=== PATIENT | male | born 1945 | race Caucasian/White ===

== ENCOUNTER 2019-01-01 19:57 | Inpatient (IN) | payer MEDICARE ==
[~2019-01-01] VITALS: Ht 177.8 cm; Wt 99.6 kg
[2019-01-01] MEDS ORDERED: COREG 3.1253.125 MG PO (20:02)
[2019-01-01] MEDS ORDERED: LASIX80 MG PO (20:03)
[2019-01-01] MEDS ORDERED: INSULIN (20:03)
[2019-01-01] MEDS ORDERED: NEURONTIN 300300 MG PO (20:03)
[2019-01-01] MEDS ORDERED: LISINOPRIL2.5 MG PO (20:03)
[2019-01-01] MEDS ORDERED: FERROUS SULFAT325 MG PO (20:03)
[2019-01-01] MEDS ORDERED: ZOLOFT100 MG PO (20:04)
[2019-01-01] MEDS ORDERED: SENNA LAXATIVE8.6 MG PO (20:04)
[2019-01-01] MEDS ORDERED: CLARITIN 10 MG10 MG PO (20:04)
[2019-01-01] MEDS ORDERED: COUMADIN2 MG PO (20:05)
[2019-01-01] MEDS ORDERED: FLOMAX0.4 MG PO (20:05)
--- NOTE | 2019-01-01 20:16 | NUR ---
PT TO RADIOLOGY.
[2019-01-01 20:18] LABS: BASOPHILS 0 % (0-2); EOSINOPHILS 0.3 % (0-7); HEMATOCRIT 28.3 % (42.0-54.0); HEMOGLOBIN 8.9 g/dL (13.5-17.5); IMMATURE GRANULOCYTES 0.4 % (0-5); LYMPHOCYTES 3.4 % (15-50); MCH 29.5 pg (26.0-34.0); MCHC 31.4 g/dL (31.0-37.0); MCV 93.7 fL (80.0-100.0); MEAN PLATELET VOLUME 9.7 fL (7.4-10.4); MONOCYTES 2.6 % (2-11); NEUTROPHILS 93.3 % (40-80); RBC 3.02 10x6/uL (4.20-6.10); RDW 15.2 % (11.5-14.5); WBC 10.5 10x3/uL (4.8-10.8)
[2019-01-01 20:27] LABS: APTT 46.3 SECONDS (22.8-39.4); INR 3.03 (0.85-1.17); PROTIME 30.6 SECONDS (11.6-15.0)
[2019-01-01 20:28] LABS: D-DIMER-QUANTITATIVE 2.01 ug/mLFEU (0.20-0.54)
--- NOTE | 2019-01-01 20:32 | NUR ---
PT RETURNED FROM RADIOLOGY.
[2019-01-01 20:35] VITALS: BP 80/50
[2019-01-01 20:44] LABS: ALBUMIN 1.9 g/dL (3.4-5.0); ALKALINE PHOSPHATASE 79 U/L (46-116); ALT (SGPT) 10 U/L (10-68); BILIRUBIN - TOTAL 0.29 mg/dL (0.2-1.3); CALCIUM 7.2 mg/dL (8.5-10.1); CARBON DIOXIDE 28.8 mmol/L (21.0-32.0); CHLORIDE - SERUM 98 mmol/L (98-107); CKMB 1.4 U/L (0.0-3.6); CREATINE KINASE 51 UL (21-232); CREATININE - SERUM 7.7 mg/dL (0.6-1.3); PROTEIN - SERUM 5.9 g/dL (6.4-8.2); SODIUM 140 mmol/L (136-145); TROPONIN-I 0.049 ng/mL (0.000-0.060); UREA NITROGEN 119 mg/dL (7-18); eGFR NON AFRICAN AMERICAN 7 mL/min (90-120)
[2019-01-01 20:48] LABS: CALC OSMOLALITY 317 mosm/kg (275-300); GLUCOSE 109 mg/dL (74-106)
[2019-01-01 20:49] LABS: POTASSIUM - SERUM 2.3 mmol/L (3.5-5.1)
[2019-01-01 20:54] LABS: PLATELET COUNT 159 10x3/uL (130-400)
[2019-01-01 21:00] VITALS: BP 80/51
[2019-01-01 21:23] LABS: APPEARANCE HAZY (CLEAR); BILIRUBIN NEGATIVE (NEGATIVE); COLOR YELLOW (YELLOW); GLUCOSE NEGATIVE (NEGATIVE); KETONE NEGATIVE (NEGATIVE); NITRITE NEGATIVE (NEGATIVE); PROTEIN TRACE mg/dL (NEGATIVE); SPECIFIC GRAVITY 1.015 (1.005-1.020); UROBILINOGEN NORMAL (NORMAL)
[2019-01-01 21:24] LABS: BACTERIA MODERATE /hpf (NONE SEEN); RED CELLS - URINE >50 /hpf (0-5); WHITE CELLS - URINE 0-5 /hpf (0-5)
[2019-01-01 22:00] VITALS: BP 95/57
--- NOTE | 2019-01-01 22:07 | NUR ---
[facility] WITH [facility], INFORMED THEM THAT PT REFUSES TRANSFER THERE AND WANTS TO STAY HERE INSTEAD. FAXED SIGNED PATIENT DECLINE TO CONSENT TO [facility] FORM TO [facility].
--- NOTE | 2019-01-01 22:23 | NUR ---
ULTRASOUND AT PT'S BEDSIDE TO DO STUDY.
[2019-01-01 23:00] VITALS: BP 88/53
--- NOTE | 2019-01-01 23:14 | NUR ---
PT GIVEN BLANKETS. DENIES ANY FURTHER NEEDS AT THIS TIME. FAMILY AT BEDSIDE. WILL CONTINUE TO MONITOR.
--- NOTE | 2019-01-02 00:36 | NUR ---
RECIEVED TO ROOM 2138 FROM ER VIA STRETCHER. PT A&O. VITALS STABLE. IV TO RIGHT ARM WITH NS 40 KCL INFUSING AT 250. IV TO LEFT ARM SL. BOTH IV SITES CLEAN AND DRY. NO SWELLING OR REDDNESS NOTED. HISTORY AND MED REC OBTAINED. PT DENIES PAIN OR NEEDS, BED LOW, CL IN REACH.
[2019-01-02 05:13] VITALS: BP 147/98; BMI 27.0
[2019-01-02 05:43] VITALS: BP 95/61
[2019-01-02 07:07] LABS: BASOPHILS 0.1 % (0-2); EOSINOPHILS 0.2 % (0-7); HEMATOCRIT 27.4 % (42.0-54.0); HEMOGLOBIN 8.7 g/dL (13.5-17.5); IMMATURE GRANULOCYTES 0.3 % (0-5); LYMPHOCYTES 11.1 % (15-50); MCH 29.9 pg (26.0-34.0); MCHC 31.8 g/dL (31.0-37.0); MCV 94.2 fL (80.0-100.0); MEAN PLATELET VOLUME 9.5 fL (7.4-10.4); NEUTROPHILS 82.3 % (40-80); PLATELET COUNT 141 10x3/uL (130-400); RBC 2.91 10x6/uL (4.20-6.10); RDW 15.5 % (11.5-14.5)
[2019-01-02 07:14] LABS: WBC 15.3 10x3/uL (4.8-10.8)
[2019-01-02 07:22] LABS: ALBUMIN 1.8 g/dL (3.4-5.0); BILIRUBIN - TOTAL 0.28 mg/dL (0.2-1.3); CALCIUM 7.2 mg/dL (8.5-10.1); CARBON DIOXIDE 28.7 mmol/L (21.0-32.0); CREATININE - SERUM 7.2 mg/dL (0.6-1.3); MAGNESIUM - SERUM 1.2 mg/dL (1.8-2.4); PROTEIN - SERUM 5.6 g/dL (6.4-8.2)
[2019-01-02 07:23] LABS: ANION GAP 14.4 mmol/L (8-16); POTASSIUM - SERUM 3.1 mmol/L (3.5-5.1)
--- NOTE | 2019-01-02 09:00 | NUR ---
PT RESTING IN BED, SHIFT ASSESSMENT PERFORMED. DENIES NEEDS AT THIS TIME, DENIES PAIN AT THIS TIME WILL CONT TO FOLLOW PLAN OF CARE
--- NOTE | 2019-01-02 10:24 | NUR ---
RADIOLOGY HERE TO TAKE PT FOR VQ SCAN.
--- NOTE | 2019-01-02 10:32 | NUR ---
RADIOLOGY DID NOT TAKE PT. HE IS HAVING DIARRHEA AND REQUEST THEM TO COME BACK LATER
--- NOTE | 2019-01-02 12:45 | NUR ---
RADIOLOGY HERE AGAIN TO TAKE PT FOR VQ SCAN
[2019-01-02 13:41] VITALS: BMI 27.7
--- NOTE | 2019-01-02 13:48 | NUR ---
PT RETURNED BACK FROM VQ SCAN.
[2019-01-02 15:11] VITALS: Ht 177.8 cm; Wt 99.6 kg
[2019-01-02 15:23] LABS: % SATURATION 19 % (15-55); IRON 24 ug/dl (35-150); TOTAL IRON BIND CAPACITY 124 ug/dl (260-445); UNSAT IRON BIND CAPACITY 100 ug/dl (150-375)
--- NOTE | 2019-01-02 16:06 | NUR ---
Pt admitted last night from home. Upon entry into the room it is evident that he has wounds due to the odor. Left lateral ankle has a 4cm x 4cm x stringy escar. This pressure injury is unstageable. Escar is in the center of wound bed with pale wet pink tissue around it. Right heel has an unstageable pressure injury measuring 7cm x 7cm x stringy moist escar. A culture was obtained from under the escar. Both wounds are malodorous. Cleansed well and applied a wet to dry dressing using saline and moistened 4x4s. Recommend using Dakins solution for dressing changes. Also: -bridge heels off the bed and pillows. Assist with positioning legs (left foot tends to lay laterally - directly on the left ankle - hence the pressure injury) -turn/reposition q 2 hours -monitor and protect bony prominences Wound care will monitor.
[2019-01-02 18:17] VITALS: BP 149/56
--- NOTE | 2019-01-02 20:48 | NUR ---
RESUMING PT CARE. PT IS ALERT LAYING IN BED. NO C/O VOICED. NO S/S OF DISTRESS NOTED. RESPIRATIONS EVEN AND UNLABORED. BED IN LOW POSITION WITH CALL LIGHT IN REACH. WILL CONTINUE TO MONITOR PT AND FOLLOW PLAN OF CARE.
[2019-01-02 21:07] VITALS: BP 121/77
--- NOTE | 2019-01-03 03:28 | NUR ---
PT LAYING IN BED WITH EYES CLOSED RESTING COMFORTABLY. NO S/S OF DISTRESS NOTED. RESPIRATIONS ARE EVEN AND UNLABORED. BED IN LOW POSITION WITH CALL LIGHT IN REACH. SIDE RAILS UP X 2. WILL CONTINUE TO MONITOR PT AND FOLLOW PLAN OF CARE.
--- NOTE | 2019-01-03 04:15 | NUR ---
I have reviewed this patient and I concur with the Shift Assessment completed by the Licensed Practical Nurse today this shift.
[2019-01-03 05:02] VITALS: BP 117/69
[2019-01-03 06:31] LABS: BASOPHILS 0.1 % (0-2); EOSINOPHILS 1.7 % (0-7); HEMATOCRIT 27.6 % (42.0-54.0); HEMOGLOBIN 8.3 g/dL (13.5-17.5); IMMATURE GRANULOCYTES 0.4 % (0-5); LYMPHOCYTES 13.3 % (15-50); MCHC 30.1 g/dL (31.0-37.0); MEAN PLATELET VOLUME 10.4 fL (7.4-10.4); MONOCYTES 10.4 % (2-11); NEUTROPHILS 74.1 % (40-80); PLATELET COUNT 164 10x3/uL (130-400); RBC 2.86 10x6/uL (4.20-6.10); RDW 15.8 % (11.5-14.5)
[2019-01-03 06:36] LABS: MCV 96.5 fL (80.0-100.0)
[2019-01-03 06:58] LABS: ALBUMIN 1.9 g/dL (3.4-5.0); ANION GAP 16.8 mmol/L (8-16); BILIRUBIN - TOTAL 0.3 mg/dL (0.2-1.3); CALCIUM 7.5 mg/dL (8.5-10.1); CARBON DIOXIDE 26.4 mmol/L (21.0-32.0); CREATININE - SERUM 6.8 mg/dL (0.6-1.3); MAGNESIUM - SERUM 1.8 mg/dL (1.8-2.4); PHOSPHOROUS 5.4 mg/dL (2.5-4.9); POTASSIUM - SERUM 4.2 mmol/L (3.5-5.1)
--- NOTE | 2019-01-03 08:58 | NUR ---
NO DISTRESS NOTED. WILL CONTINUE TO MONITOR.
[2019-01-03 09:14] LABS: FOLATE (FOLIC ACID) - SERUM 9.2 ng/mL (>3.0)
--- NOTE | 2019-01-03 09:34 | NUR ---
AWAKE SITTING UP IN BED READING THE PAPER AND HAVING BREAKFAST. NO DISTRESS NOTED.
[2019-01-03 09:39] VITALS: BP 130/81
--- NOTE | 2019-01-03 10:34 | NUR ---
PT HAS HAD ANOTHER SMALL AMT OF LIQUID BLACK STOOL. Vidal BARGER RENAL CHILD CARE COOK HERE AND WAS INFORMED. DRESSING ON FEET WERE CHANGED EARLY THIS AM. FOUL ODOR NOTED FROM FEET. P.T. IN ROOM TO AMB PT.
[2019-01-03 11:45] VITALS: BP 147/76
--- NOTE | 2019-01-03 12:15 | NUR ---
INFORMED DR. FERRER OF [facility]. DR. FERRER WANTS TO WAIT ON GI CONSULT
--- NOTE | 2019-01-03 15:50 | MORECARE ---
CASE MANAGEMENT DISCHARGE SUMMARY PATIENT: STEPHIE CHURCH UNIT: [id number] ADM DATE: 01/01/19 AGE: 73 : 46 SEX: M ROOM/BED: D.5088 AUTHOR: AHMET,DOC PHYSICIAN: REFERRING PHYSICIAN: SOLEDAD BETHEA MD DATE OF SERVICE: 01/03/19 Discharge Plan Patient Name: STEPHIE CHURCH Facility: [facility]:[place] : 1945 Planned Disposition: Home Anticipated Discharge Date: Discharge Date: Expected LOS: Initial Reviewer: [id number] Initial Review Date: 01/03/2019 Generated: 01/03/19 4:49 pm Comments DCP- Discharge Planning Updated by [email or web address]: Julio Obregon on 01/03/19 2:[address] Patient Name: STEPHIE CHURCH Admission Status: ER Accout number: [id number] Admission Date: 01-01-2019 : 1945 Admission Diagnosis: Attending: SOLEDAD BETHEA Current LOS: 2 Anticipated DC Date: Planned Disposition: Home Primary Insurance: [employer] Discharge Planning Comments: CM MET WITH PT IN ROOM TO DISCUSS DISCHARGE PLANNING AND NEEDS. PT REPORTS LIVING AT HOME INDEPENDENTLY WITH HIS ADULT SON. PT HAS WALKER AND WHEELCHAIR FROM THE [place]. PT HAS NO OUTSIDE SERVICES ASSISTING IN THE HOME. CM DISCUSSED AVAILABILITY OF HOME HEALTH, REHAB SERVICES AND MEDICAL EQUIPMENT. PT DENIES DISCHARGE NEEDS, REPORTS HIS SON WILL PICK HIM UP FOR DISCHARGE HOME. IMPORTANT MESSAGE FROM MEDICARE PROVIDED AND EXPLAINED. PT DECLINES TRANSFER TO [place], REPORTING IT WOULD BE A HARDSHIP TO HIS FAMILY. PT REPORTS HAVING MEDICARE AND WILL HAVE HIS NIECE PROVIDE THE CARD TO CM OR REGISTRATION TOMORROW WHEN SHE COMES TO HOSPITAL. PT PLANS TO DISCHARGE HOME WITH HIS SON. PT DENIES DISCHARGE NEEDS AT THIS TIME. CM TO FOLLOW AND ASSIST IF NEEDED. Corn Detasseler: Julio Obregon DCPIA - Discharge Planning Initial Assessment Updated by [email or web address]: Julio Obregon on 01/03/19 3:44 pm * Is the patient Alert and Oriented? Yes * How many steps to enter\exit or inside your home? * PCP DR. YANG AT [facility] * Pharmacy [place] [facility] * Preadmission Environment Home with Family * ADLs Independent * Equipment Walker Wheelchair * Other Equipment [employer] - MED[employer] EQUIPMENT PROVIDER * List name and contact numbers for known caregivers / representatives who currently or will assist patient after discharge: KAYCE CHURCH, SON, * Verbal permission to speak to the caregivers and representatives has been obtained from the patient. N/A * Community resources currently utilized None * Please name any agencies selected above. NONE * Additional services required to return to the preadmission environment? No * Can the patient safely return to the preadmission environment? Yes * Has this patient been hospitalized within the prior 30 days at any hospital? No Coverage Notice Reviewer: [id number] Cadence Obregon Notice Issued Date-Time: 01/03/2019 15:35 Notice Type: IM Discharge Notice Notice Delivered To: Patient Relationship to Patient: Fabrication Specialist Name: Delivery Method: HAND - Hand Delivered Emily Days: Prior Verbal Notification: Recipient Understood Notice: Yes Recipient Signature: Yes Med Rec Note Co-signed by Attending: Coverage Notice Comment: Patient Name: STEPHIE CHURCH Page [phone] at 1550 All edits/amendments must be made on the electronic document DICTATION DATE: 01/03/191548 AUTOMATION CONTROL INTEGRATOR: MELIA 01/03/191548 RPT#: [id number] DC DATE: STATUS: ADM IN [facility] [address] [place] [address] END OF REPORT
--- NOTE | 2019-01-03 16:15 | NUR ---
DR. DONOVAN HERE AND CHANGED PTS BANDAGES. PT TOLERATED WELL. SMALL AMT YELLOWISH BROWN DRAINAGE FROM BOTH WOUNDS.
[2019-01-03 16:53] VITALS: BP 135/89
--- NOTE | 2019-01-03 18:31 | NUR ---
PT REQUESTED MED FOR DIARRHEA. HAS HAD LOOSE STOOL X 5 TODAY. ORDER RECEIVED FOR C-DIFF AND IMODIUM. WILL START IMODIUM AFTER STOOL COLLECTED.
[2019-01-03 21:14] VITALS: BP 122/79
[2019-01-04 03:53] VITALS: BP 126/79
[2019-01-04 05:44] LABS: BASOPHILS 0.1 % (0-2); EOSINOPHILS 0.9 % (0-7); HEMATOCRIT 30.3 % (42.0-54.0); HEMOGLOBIN 9.2 g/dL (13.5-17.5); IMMATURE GRANULOCYTES 0.6 % (0-5); LYMPHOCYTES 12.1 % (15-50); MCH 29.3 pg (26.0-34.0); MCHC 30.4 g/dL (31.0-37.0); MCV 96.5 fL (80.0-100.0); MEAN PLATELET VOLUME 10.2 fL (7.4-10.4); MONOCYTES 6.4 % (2-11); NEUTROPHILS 79.9 % (40-80); PLATELET COUNT 186 10x3/uL (130-400); RBC 3.14 10x6/uL (4.20-6.10); RDW 15.9 % (11.5-14.5); WBC 11.6 10x3/uL (4.8-10.8)
[2019-01-04 06:05] LABS: ALBUMIN 1.9 g/dL (3.4-5.0); BILIRUBIN - TOTAL 0.3 mg/dL (0.2-1.3); CARBON DIOXIDE 22.8 mmol/L (21.0-32.0); CREATININE - SERUM 6.8 mg/dL (0.6-1.3); POTASSIUM - SERUM 4.8 mmol/L (3.5-5.1); PROTEIN - SERUM 6.1 g/dL (6.4-8.2)
--- NOTE | 2019-01-04 07:40 | NUR ---
REPORT RECEIVED. WILL CONTINUE WITH POC. PT CURRENTLY LYING SEMI FOWLERS. CALL LIGHT W/I REACH. PT IS AAO AND BEDFAST. RR EVEN AND UNLABORED ON 2L 02. NS INFUSING @50ML/HR VIA R.WRIST PIV. NO S/S OF INFILTRATION. NO S/S OF DISTRESS NOTED. PT DENIES ANY NEEDS AT THIS TIME. WILL CTM.
[2019-01-04 08:00] VITALS: BP 127/80
[2019-01-04 10:16] LABS: HEPATITIS C ANTIBODY <0.1 (0.0-0.9)
[2019-01-04 11:52] VITALS: BP 129/81
--- NOTE | 2019-01-04 11:59 | NUR ---
RECEIVED ORDERS FROM CAMIL[facility] TO PLACE PT IN CONTACT [facility] FOR PRECAUTIONARY MEASURES. FSBS @1130 WAS 113. PT DENIES ANY NEEDS AT THIS TIME. WILL CTM.
--- NOTE | 2019-01-04 13:50 | NUR ---
Nutrition Follow Up: Chart reviewed Diet: Renal ADA; Glucerna TID PO Intake: 75% meal avg BM: 01/03/19 Meds and labs reviewed Rec continue current diet. RD following.
[2019-01-04 15:05] VITALS: BP 137/89
--- NOTE | 2019-01-04 15:26 | NUR ---
RECEIVED WORD FROM LAB THAT PT TESTED POSITIVE FOR CDT ANTIGEN. PT ALREADY ON CONTACT ISO FOR PRECAUTIONARY MEASURES. WILL KEEP PT IN [facility]. WILL CTM.
--- NOTE | 2019-01-04 18:35 | NUR ---
PT CURRENTLY LYING SEMI FOWLERS. CALL LIGHT W/I REACH. RR EVEN AND UNLABORED ON 2L 02. PT HAS NOT HAD BM SINCE NOON. PT DENIES ANY NEEDS AT THIS TIME. NO S/S OF DISTRESS NOTED. NS INFUSING @50ML/HR VIA R.WRIST PIV. WILL PASS REPORT AND CONTINUE WITH POC.
[2019-01-04 20:32] VITALS: BP 126/88
--- NOTE | 2019-01-04 21:46 | NUR ---
OT NOTE: PT COMPLETED BED MOB WITH MIN A. PT COMPLETED EOB SITTING BALANCE WHILE MAINTAINING NWB STATUS. PT COMPLETED GROOMING TASK AT EOB WITH SET UP. PT COMPLETED BUE AROM WITH RUE DECREASED ROM NOTED. 220/092 THANK YOU, CHICO LAMB
[2019-01-05] VITALS (7 sets, daily range): BP systolic 141–177; BP diastolic 77–98
--- NOTE | 2019-01-05 02:57 | NUR ---
I have reviewed this patient and I concur with the Shift Assessment completed by the Licensed Practical Nurse today this shift.
[2019-01-05 05:56] LABS: BASOPHILS 0 % (0-2); EOSINOPHILS 1.7 % (0-7); HEMOGLOBIN 9.3 g/dL (13.5-17.5); IMMATURE GRANULOCYTES 1.2 % (0-5); LYMPHOCYTES 13.6 % (15-50); MCH 29.7 pg (26.0-34.0); MCV 95.8 fL (80.0-100.0); MEAN PLATELET VOLUME 10.3 fL (7.4-10.4); MONOCYTES 6.3 % (2-11); NEUTROPHILS 77.2 % (40-80); PLATELET COUNT 193 10x3/uL (130-400); RBC 3.13 10x6/uL (4.20-6.10); RDW 16.2 % (11.5-14.5); WBC 10.4 10x3/uL (4.8-10.8)
[2019-01-05 06:29] LABS: ANION GAP 19.9 mmol/L (8-16); BILIRUBIN - TOTAL 0.37 mg/dL (0.2-1.3); CALCIUM 7.9 mg/dL (8.5-10.1); CARBON DIOXIDE 20.9 mmol/L (21.0-32.0); CREATININE - SERUM 6.6 mg/dL (0.6-1.3); PROTEIN - SERUM 6.4 g/dL (6.4-8.2)
[2019-01-05 06:36] LABS: POTASSIUM - SERUM 3.8 mmol/L (3.5-5.1)
--- NOTE | 2019-01-05 10:38 | NUR ---
MORNING ASSESSMENT COMPELTE. SEE ASSESSMENT FLOWSHEET FOR FURTHER DETIALS. PT LYING IN BED AAO X4 TO PERSON, PLACE, TIME, AND SITUAQTION. DENIES NEEDS AT THIS TIME. CL IN REACH. SIDE RAILS UP X3 FOR PT SAEFTY. BED IN LOWEST POTITION.
--- NOTE | 2019-01-05 19:17 | NUR ---
RECIEVED LYING IN BED WITH EYES CLOSED. EASILY AROUSES WITH VERBAL STIMULI. REMAINS IN CONTACT ISOLATION R/T WOUNDS. DSG TO RIGHT HEEL AND LEFT ANKLE INTACT. IV TO RIGHT WRIST WITH NS INFUSING AT 50ML/HR. NO REDNESS OR SWELLING TO SITE. IV TO LEFT WRIST SL.. TELEMETRY IN PLACE. ORBITAL EDEMA OBSERVED AND PITTING EDEMA TO LOWER EXTREMITIES. USES URINAL IN BED. TELEMETRY IN PLACE. DENIES ANY OTHER NEEDS.
[2019-01-06 05:51] VITALS: BP 144/93
[2019-01-06 06:15] LABS: BASOPHILS 0.1 % (0-2); EOSINOPHILS 2.3 % (0-7); HEMATOCRIT 28.6 % (42.0-54.0); HEMOGLOBIN 8.9 g/dL (13.5-17.5); IMMATURE GRANULOCYTES 1.9 % (0-5); LYMPHOCYTES 14.3 % (15-50); MCH 29.2 pg (26.0-34.0); MCHC 31.1 g/dL (31.0-37.0); MEAN PLATELET VOLUME 9.9 fL (7.4-10.4); MONOCYTES 7.2 % (2-11); NEUTROPHILS 74.2 % (40-80); PLATELET COUNT 172 10x3/uL (130-400); RBC 3.05 10x6/uL (4.20-6.10); WBC 9.5 10x3/uL (4.8-10.8)
[2019-01-06 06:17] LABS: MCV 93.8 fL (80.0-100.0)
[2019-01-06 06:34] LABS: ALBUMIN 1.7 g/dL (3.4-5.0); ANION GAP 18.6 mmol/L (8-16); BILIRUBIN - TOTAL 0.32 mg/dL (0.2-1.3); CALCIUM 8.1 mg/dL (8.5-10.1); CARBON DIOXIDE 21.1 mmol/L (21.0-32.0); CREATININE - SERUM 6.5 mg/dL (0.6-1.3); POTASSIUM - SERUM 3.7 mmol/L (3.5-5.1); PROTEIN - SERUM 5.8 g/dL (6.4-8.2)
--- NOTE | 2019-01-06 08:01 | NUR ---
MORNING ROUNDS MADE. PT LAYING IN BED RESTING. DENIES PAIN AT THIS TIME. PT ALERT AND CONFUSED TO TIME AND SITUATION. REORIENTED PATIENT. BEDFAST. RM AIR. R WRIST IV WITH NS @ 50 CC/HR. L WRIST IV SL. NORMAL SINUS ON TELE. R HEEL DRSG C/D/I. L ANKLE DRSG C/D/I. 2+ EDEMA TO BLE. NO FURTHER CONCERNS AT THIS TIME. FALL PRECAUTIONS IN PLACE. BED LOWERED AND LOCEKD. CL IN REACH. WILL CTM.
[2019-01-06 08:14] VITALS: BP 126/86
--- NOTE | 2019-01-06 10:05 | NUR ---
PT TOOK MEDS WIHTOUT DIFFICULTY. DENIES PAIN AT THIS TIME. VITALS STABLE. CONTACT PRECAUTIONS TAKEN. FALL PRECAUTIONS IN PLACE. NO FURTHER CONCERNS AT THIS TIME. WILL CTM.
--- NOTE | 2019-01-06 11:51 | NUR ---
PT TOOK CARAFATE WITHOUT DIFFICULTY, ICE WATER GIVEN TO PT. DENIES PAIN/DISCOMFORT AT THIS TIME. IV STARTED TO R WRIST. IV PATENT, NO REDNESS, NO EDEMA, DRSG, C/D/I. IV TO L WRIST SL. NO FURTHER CONCERS AT THIS TIME. BED LOWERED AND LOCKED. CL IN REACH. WILL CTM.
[2019-01-06 12:08] VITALS: BP 131/82
--- NOTE | 2019-01-06 13:34 | NUR ---
DR. BARAKAT MAKING ROUNDDS IN PT ROOM.
--- NOTE | 2019-01-06 13:44 | NUR ---
I have reviewed this patient and I concur with the Shift Assessment completed by the Licensed Practical Nurse today this shift.
[2019-01-06 15:49] VITALS: BP 133/98
--- NOTE | 2019-01-06 20:04 | NUR ---
RECIEVED UP IN BED WITH EYES OPEN AND TV ON. ALERT AND ORIENTED X4. REMAINS IN CONTACT ISOLATION R/T C-DIFF. DSG TO RIGHT FOOT AND LEFT HEEL CDI. HOWEVER VERY ODOROUS. CONTINUES TO HAVE EDEMA TO LOWER EXTREMITIES AND ORBITAL EDEMA. TELEMETRY IN PLACE. IV TO RIGHT WRIST WITH NS AT 50CC/HR. ALSO, IV TO LEFT WRIST SL.. DENIES ANY NEEDS OTHER THAN WATER. WATER GIVEN AND NO OTHER C/O VOICED.
[2019-01-06 20:33] VITALS: BP 136/73
[2019-01-07 00:33] VITALS: BP 138/75
[2019-01-07 05:08] VITALS: BP 134/82
[2019-01-07 06:33] LABS: ALBUMIN 1.8 g/dL (3.4-5.0); ANION GAP 17.1 mmol/L (8-16); BILIRUBIN - TOTAL 0.34 mg/dL (0.2-1.3); CALCIUM 8.3 mg/dL (8.5-10.1); CARBON DIOXIDE 21.5 mmol/L (21.0-32.0); CREATININE - SERUM 6.5 mg/dL (0.6-1.3); POTASSIUM - SERUM 3.6 mmol/L (3.5-5.1); PROTEIN - SERUM 5.9 g/dL (6.4-8.2)
[2019-01-07 07:01] LABS: BASOPHILS 0.1 % (0-2); HEMATOCRIT 29.8 % (42.0-54.0); HEMOGLOBIN 9.2 g/dL (13.5-17.5); IMMATURE GRANULOCYTES 2.3 % (0-5); LYMPHOCYTES 15.9 % (15-50); MCH 29.2 pg (26.0-34.0); MCHC 30.9 g/dL (31.0-37.0); MCV 94.6 fL (80.0-100.0); MEAN PLATELET VOLUME 10.1 fL (7.4-10.4); MONOCYTES 7.3 % (2-11); NEUTROPHILS 71.4 % (40-80); PLATELET COUNT 192 10x3/uL (130-400); RBC 3.15 10x6/uL (4.20-6.10); RDW 16.1 % (11.5-14.5); WBC 8.8 10x3/uL (4.8-10.8)
[2019-01-07 08:00] VITALS: BP 140/94
[2019-01-07 08:07] LABS: SPE - A/G RATIO 0.9 (0.7-1.7); SPE - ALBUMIN 2.5 g/dL (2.9-4.4); SPE - ALPHA-1 GLOBULIN 0.4 g/dL (0.0-0.4); SPE - ALPHA-2 GLOBULIN 0.8 g/dL (0.4-1.0); SPE - BETA GLOBULIN 0.8 g/dL (0.7-1.3); SPE - M-SPIKE Not Observed g/dL (Not Observed); SPE - TOTAL PROTEIN 5.4 g/dL (6.0-8.5)
--- NOTE | 2019-01-07 09:14 | NUR ---
PT C/O OF PAIN IN HIS RIGHT HEEL AND LEFT ANKLE AND RIGHT ARM/SHOULDER. DAYRON SANTOS GAVE ME V.O. FOR NORCO 7.5 Q4HP. I ALSO STATED TO DAYRON SANTOS THAT PT'S HEART AND BP MEDS HAVE BEEN HELD SINCE ADMISSION SHE STATES HE WILL LOOK AT PT'S MED REC. I VERBALIZED UNDERSTANDING.
--- NOTE | 2019-01-07 09:32 | NUR ---
PT STATES HE IS NOT HAVING ANY PAIN AT THIS TIME.
--- NOTE | 2019-01-07 09:45 | NUR ---
I have reviewed this patient and I concur with the Shift Assessment completed by the Licensed Practical Nurse today this shift.
[2019-01-07 12:00] VITALS: BP 142/96
--- NOTE | 2019-01-07 13:40 | NUR ---
RIGHT HEEL AND LEFT ANKLE DRESSING CHANGE DONE ORDERED BY IP COUNSEL.
[2019-01-07 16:20] VITALS: BP 150/103
--- NOTE | 2019-01-07 16:28 | NUR ---
SPOKE WITH MARS FROM SORORITY SUPERVISOR SHE STATES PT HAS NO INTERVENTIONS FOR HEART CATH. LEFT GROIN. SHE GAVE 200 FENTANYL AND 4 VERSED. AND SHE STATES PT WILL START A TRIAL OF RANEXA.
--- NOTE | 2019-01-07 16:35 | NUR ---
PT RETURNED FROM CITY DESIGNER. ALERT AND ORIENTED. ROOM AIR. RIGHT AC IV NS INFUSING. LEFT GROIN SOFT, SHOWS NO S/S OF HEMATOMA, DRESSING C/D/I. PP CHECKED. BED LOW. CL IN REACH. WILL CONTINUE TO MONITOR.
--- NOTE | 2019-01-07 17:32 | NUR ---
OT NOTE: PT COMPLETED BED MOB TASKS WITH MOD A. PT COMPLIANT WITH NWB STATUS AND IS VERY CAUTIOUS. PT REQUIRED MORE ASSIST THAN IN PREVIOUS SESSIONS. PT COMPLETED FACE WASHING WITH SET UP. PT COMPLETED BUE AROM EX. NURSING NOTIFIED THAT PT HAS CHEWING TOBACCO IN ROOM. [id number] THANK YOU, CHICO LAMB
--- NOTE | 2019-01-07 18:20 | NUR ---
ASKED DR. BETHEA TO RELOOK AT PT'S HOME MEDS. HE STATED HE WILL ONCE HE GETS TO THAT ROOM.
[2019-01-07 20:00] VITALS: BP 144/75
--- NOTE | 2019-01-07 21:09 | NUR ---
CHECKED PT FSBS 149
[2019-01-08] VITALS: BP 141/101
--- NOTE | 2019-01-08 03:50 | NUR ---
I have reviewed this patient and I concur with the Shift Assessment completed by the Licensed Practical Nurse today this shift.
[2019-01-08 04:00] VITALS: BP 140/96
[2019-01-08 07:00] LABS: BASOPHILS 0.1 % (0-2); EOSINOPHILS 2.2 % (0-7); HEMATOCRIT 30.1 % (42.0-54.0); HEMOGLOBIN 9.2 g/dL (13.5-17.5); LYMPHOCYTES 15.2 % (15-50); MCH 28.8 pg (26.0-34.0); MCHC 30.6 g/dL (31.0-37.0); MCV 94.4 fL (80.0-100.0); MEAN PLATELET VOLUME 10.2 fL (7.4-10.4); MONOCYTES 6.9 % (2-11); NEUTROPHILS 73.6 % (40-80); PLATELET COUNT 206 10x3/uL (130-400); RBC 3.19 10x6/uL (4.20-6.10); RDW 16.3 % (11.5-14.5); WBC 9.6 10x3/uL (4.8-10.8)
[2019-01-08 07:35] LABS: ANION GAP 19.3 mmol/L (8-16); CALCIUM 8.3 mg/dL (8.5-10.1); CARBON DIOXIDE 21.4 mmol/L (21.0-32.0); CREATININE - SERUM 6.2 mg/dL (0.6-1.3); POTASSIUM - SERUM 3.7 mmol/L (3.5-5.1)
[2019-01-08 08:57] VITALS: BP 144/88
--- NOTE | 2019-01-08 10:15 | NUR ---
PT RESTING IN BED, PT EATING BREAKFAST. DRESSINGS TO BLE CLEAN AND DRY. PT STATES HE IS TO START DIALYSIS TODAY. ADVISED PT THAT HE DOES NOT HAVE A DIALYSIS ACCESS. UPON READING THE PT NOTES NOTED THAT PT IS NOW AGREEING TO HD BUT [facility] SINCE NEPHROLOGY HAS SIGNED OFF AT THIS TIME. PT STATES HE DOES NOT WANT TO [facility] TO [facility] AND WANTS TO ESTABLISH HD ACCESS HERE. WILL DISCUSS WITH ATTENDING
--- NOTE | 2019-01-08 11:00 | NUR ---
VENDOR QUALITY SUPERVISOR AND INSTRUCTOR CHANGED DRESSINGS TO BLE. PT TOLERATED WELL
--- NOTE | 2019-01-08 11:00 | NUR ---
SPOKE WITH RONALD PADGETT REGARDING PT NOT WANTING TO [facility]. NEW ORDER RECIEVED TO CONSULT NEPHROLOGY. SPOKE WITH DEBORAH CARDENAS IN PERSON REGARDING PT AND SHE STATES SHE WILL SEE THE PT
[2019-01-08 11:59] VITALS: BP 118/95
--- NOTE | 2019-01-08 12:35 | NUR ---
PT O2 SATURATION IS 100% ON 3LNC, DECREASED O2 DOWN TO 2L NC. WILL CONT TO MONITOR
--- NOTE | 2019-01-08 12:39 | NUR ---
WHEN GOING INTO PT ROOM TO GIVE HIS 1200 MEDICATIONS, NOTICED A CAN OF DIP SITTING ON PT BEDSIDE TABLE. ADVISED PT HE CANNOT HAVE DIP IN THIS FACILITY. PT IS UNDERSTANDING AND TELLS NURSE THAT HE HAS 2 OTHER CANS IN HIS BEDSIDE TABLE, NURSE TOOK 3 CANS OF DIP AND PLACED IN A ZIPLOCK BAG WITH PT NAME ON IT. ATTEMPTED TO CALL PT FAMILY TO COME GET HIS DIP
--- NOTE | 2019-01-08 13:14 | NUR ---
OT NOTE: BED MOB WITH MIN/MOD ASSIST; STATIC SITTING ON EDGE OF BED WITHOUT SUPPORT; UE AROM EXS WHILE MAINTAINING BALANCE, PT WITH DECREASED TRUNK STRENGTH BUT DOING BETTER. ([phone]) CLEMENTE NOEL, OTR/L
--- NOTE | 2019-01-08 14:40 | NUR ---
Nutrition Follow Up: Renal ADA diet with 5,50,90% intake of meals yesterday Pt reports good appetite and tolerating foods better Pt reports stool is more formed now BM noted yesterday Reviewed labs RD following
--- NOTE | 2019-01-08 15:47 | MORECARE ---
CASE MANAGEMENT DISCHARGE SUMMARY PATIENT: STEPHIE CHURCH UNIT: [id number] ADM DATE: 01/01/19 AGE: 73 : 47 SEX: M ROOM/BED: D.8031 AUTHOR: AHMETDOC PHYSICIAN: REFERRING PHYSICIAN: SOLEDAD BETHEA MD DATE OF SERVICE: 01/08/19 Discharge Plan Patient Name: STEPHIE CHURCH Facility: [facility]:[place] : 1945 Planned Disposition: Home Anticipated Discharge Date: 01/09/19 Discharge Date: Expected LOS: 8 Initial Reviewer: [email or web address] Initial Review Date: 01/03/2019 Generated: 01/08/19 4:46 pm Comments DCP- Discharge Planning Updated by [email or web address]: Julio Obregon on 01/08/19 2:[address] Patient Name: STEPHIE CHURCH Encounter No: [id number] : 1945 Primary Insurance: MEDICARE PART A ONLY Anticipated DC Date: 01-09-2019 Planned Disposition: Home DCP follow-up note: CM MET WITH PT IN ROOM TO DISCUSS DISCHARGE NEEDS AND PLANNING. CM ASKED PT IF HE HAD DECIDED TO HAVE DIALYSIS. PT STATES YES. CM EXPLAINED THAT PT HAS MEDICARE PART A ONLY AND THAT [facility] CAN PROVIDE PT'S CARE AT NO COST. PT REPORTS INABILITY TO AFFORD OTHER INSURANCE AND WILL FOLLOW UP WITH ID FOR HIS WOUND CARE AND HEMO DIALYSIS NEEDS. PT DENIES NEED OF HOME HEALTH SERVICES, STATES HE LIVES WITH HIS SON AND THAT H IS [facility] IS HOME TO ASSIST WITH HIS CARE. PT REPORTS ABILITY TO TRANSFER TO HIS STANDARD OR ELECTRIC WHEELCHAIR AT HOME. PT REPORTS HIS DAUGHTER ALSO COMES OVER TO ASSIST HIM AT HOME. PT ASKED FOR CM TO FAX RECORDS TO [facility] IN [place] TO ASSIST WITH HIS FOLLOW UP OUTPATIENT CARE AT [facility]. PT STATES HE WANTS TO GO HOME AND WOULD LIKE TO DISCHARGE HOME TOMORROW. PT STATES HIS SON OR DAUGHTER WILL PICK HIM UP FOR TRANSPORT HOME. IMPORTANT MESSAGE FROM MEDICARE PROVIDED AND EXPLAINED. PATIENT PLANS TO DISCHARGE HOME WITH FAMILY ASSISTANCE. FOR DISCHARGE HOME, CM TO FAX RECORDS AND DISCHARGE INFORMATION TO [facility] AT [phone]. BELKYS Elaine DCP- Discharge Planning Updated by [id number]: Julio Obregon on 01/03/19 2:[address] Patient Name: STEPHIE CHURCH Admission Status: ER Accout number: [id number] Admission Date: 01-01-2019 : 1945 Admission Diagnosis: Attending: SOLEDAD BETHEA Current LOS: 2 Anticipated DC Date: Planned Disposition: Home Primary Insurance: [employer] Discharge Planning Comments: CM MET WITH PT IN ROOM TO DISCUSS DISCHARGE PLANNING AND NEEDS. PT REPORTS LIVING AT HOME INDEPENDENTLY WITH HIS ADULT SON. [facility]. PT HAS NO OUTSIDE SERVICES ASSISTING IN THE HOME. CM DISCUSSED AVAILABILITY OF HOME HEALTH, REHAB SERVICES AND MEDICAL EQUIPMENT. PT DENIES DISCHARGE NEEDS, REPORTS HIS SON WILL PICK HIM UP FOR DISCHARGE HOME. IMPORTANT MESSAGE FROM MEDICARE PROVIDED AND EXPLAINED. PT DECLINES TRANSFER TO [facility], REPORTING IT WOULD BE A HARDSHIP TO HIS FAMILY. PT REPORTS HAVING MEDICARE AND WILL HAVE HIS NIECE PROVIDE THE CARD TO CM OR REGISTRATION TOMORROW WHEN SHE COMES TO HOSPITAL. PT PLANS TO DISCHARGE HOME WITH HIS SON. PT DENIES DISCHARGE NEEDS AT THIS TIME. CM TO FOLLOW AND ASSIST IF NEEDED. Continuous Improvement Consultant: Julio Obregon DCPIA - Discharge Planning Initial Assessment Updated by [id number]: Julio Obregon on 01/03/19 3:44 pm * Is the patient Alert and Oriented? Yes * How many steps to enter\exit or inside your home? * PCP DR. YANG AT [facility] * [facility] [address] * Preadmission Environment Home with Family * ADLs Independent * Equipment Walker Wheelchair * Other Equipment [employer] - MED[employer] EQUIPMENT PROVIDER * List name and contact numbers for known caregivers / representatives who currently or will assist patient after discharge: KAYCE CHURCH, SON, * Verbal permission to speak to the caregivers and representatives has been obtained from the patient. N/A * Community resources currently utilized None * Please name any agencies selected above. NONE * Additional services required to return to the preadmission environment? No * Can the patient safely return to the preadmission environment? Yes * Has this patient been hospitalized within the prior 30 days at any hospital? No Coverage Notice Reviewer: [id number] - Julio Obregon Notice Issued Date-Time: 01/03/2019 15:35 Notice Type: IM Discharge Notice Notice Delivered To: Patient Relationship to Patient: Stage Rigger Name: Delivery Method: HAND - Hand Delivered Emily Days: Prior Verbal Notification: Recipient Understood Notice: Yes Recipient Signature: Yes Med Rec Note Co-signed by Attending: Coverage Notice Comment: Reviewer: [email or web address] - Julio Obregon Notice Issued Date-Time: 01/08/2019 15:20 Notice Type: IM Discharge Notice Notice Delivered To: Patient Relationship to Patient: Stage Rigger Name: Delivery Method: HAND - Hand Delivered Emily Days: Prior Verbal Notification: Recipient Understood Notice: Yes Recipient Signature: Yes Med Rec Note Co-signed by Attending: Coverage Notice Comment: Last DP export: 01/03/19 2:49 p Patient Name: STEPHIE CHURCH Page [phone] at 1547 All edits/amendments must be made on the electronic document DICTATION DATE: 01/08/191545 STATE ASSESSED PROPERTIES DIRECTOR: MELIA 01/08/191545 RPT#: [id number] DC DATE: STATUS: ADM IN [facility] [address] [place] [address] END OF REPORT
[2019-01-08 16:11] VITALS: BP 129/79
[2019-01-08 20:00] VITALS: BP 139/103
--- NOTE | 2019-01-08 20:17 | NUR ---
OT NOTE: PT COMPLETED BED MOB AND SUPINE TO SIT WITH MOD A. PT COMPLETED GROOMING TASKS WITH SET UP. [phone] THANK YOU, CHICO LAMB
--- NOTE | 2019-01-08 21:15 | NUR ---
PM MEDS ADMINISTERED ORDERED.
--- NOTE | 2019-01-08 23:05 | NUR ---
ACCORDING TO TRIAGE CLINICIAN, PT WAS THROW THE SOILED BLUE PAD AND LINEN IN WALL. PT WAS AGGRESSIVE, CONFUSED AND ASKED WHERE IS HIS SON. CALLED SECURITY AND PT CALM DOWN. WILL MONITOR CLOSLY.
[2019-01-09 00:30] VITALS: BP 140/96
--- NOTE | 2019-01-09 04:12 | NUR ---
I have reviewed this patient and I concur with the Shift Assessment completed by the Licensed Practical Nurse today this shift.
--- NOTE | 2019-01-09 04:41 | NUR ---
REST QUIELTY IN BED, CALL LIGHT IN REACH.
[2019-01-09 05:00] VITALS: BP 157/83
[2019-01-09 05:00] LABS: BASOPHILS 0 % (0-2); EOSINOPHILS 1.4 % (0-7); HEMATOCRIT 27.3 % (42.0-54.0); HEMOGLOBIN 8.6 g/dL (13.5-17.5); IMMATURE GRANULOCYTES 1.7 % (0-5); LYMPHOCYTES 11.7 % (15-50); MCH 29.2 pg (26.0-34.0); MCHC 31.5 g/dL (31.0-37.0); MCV 92.5 fL (80.0-100.0); MEAN PLATELET VOLUME 9.8 fL (7.4-10.4); MONOCYTES 6.4 % (2-11); NEUTROPHILS 78.8 % (40-80); PLATELET COUNT 210 10x3/uL (130-400); RBC 2.95 10x6/uL (4.20-6.10); RDW 16.3 % (11.5-14.5)
[2019-01-09 05:14] LABS: ANION GAP 20.1 mmol/L (8-16); CALCIUM 8.1 mg/dL (8.5-10.1); CARBON DIOXIDE 18.3 mmol/L (21.0-32.0); CREATININE - SERUM 6.1 mg/dL (0.6-1.3); POTASSIUM - SERUM 3.4 mmol/L (3.5-5.1)
[2019-01-09] MEDS ORDERED: FLAGYL500 MG PO (08:34)
[2019-01-09] MEDS ORDERED: LEVOFLOXACIN500 MG PO (08:35)
[2019-01-09 08:39] VITALS: BP 122/64
--- NOTE | 2019-01-09 09:30 | NUR ---
PT RESTING IN BED, SHIFT ASSESSMENT PERFORMED, PO MEDS GIVEN ORDERED. PT SON HERE AND STATES HE WOULD LIKE TO LEARN HOW TO PERFORM HIS DADS WOUND CARE. WILL PROVIDE TEACHING. CONTINUES ISOLATION RELATED TO C-DIFF. DENIES ANY OTHER NEEDS AT THIS TIME, WILL CONT TO FOLLOW PLAN OF CARE
--- NOTE | 2019-01-09 12:58 | MORECARE ---
CASE MANAGEMENT DISCHARGE SUMMARY PATIENT: STEPHIE CHURCH UNIT: [id number] ADM DATE: 01/01/19 AGE: 73 : [birth year] SEX: M ROOM/BED: D.9463 AUTHOR: THERESE LEO PHYSICIAN: REFERRING PHYSICIAN: SOLEDAD BETHEA MD DATE OF SERVICE: 01/09/19 Discharge Plan Patient Name: STEPHIE CHURCH Facility: [facility]:[place] : 1945 Planned Disposition: Home Anticipated Discharge Date: 01/09/19 Discharge Date: Expected LOS: 8 Initial Reviewer: [id number] Initial Review Date: 01/03/2019 Generated: 01/09/19 1:57 pm Comments DCP- Discharge Planning Updated by [email or web address]: Julio Obregon on 01/08/19 2:[address] Patient Name: STEPHIE CHURCH Encounter No: [id number] : 1945 Primary Insurance: MEDICARE PART A ONLY Anticipated DC Date: 01-09-2019 Planned Disposition: Home DCP follow-up note: CM MET WITH PT IN ROOM TO DISCUSS DISCHARGE NEEDS AND PLANNING. CM ASKED PT IF HE HAD DECIDED TO HAVE DIALYSIS. PT STATES YES. CM EXPLAINED THAT PT HAS MEDICARE PART A ONLY AND THAT [facility] CAN PROVIDE PT'S CARE AT NO COST. PT REPORTS INABILITY TO AFFORD OTHER INSURANCE AND WILL FOLLOW UP WITH [facility] FOR HIS WOUND CARE AND HEMO DIALYSIS NEEDS. PT DENIES NEED OF HOME HEALTH SERVICES, STATES HE LIVES WITH HIS SON AND THAT H IS [facility] IS HOME TO ASSIST WITH HIS CARE. PT REPORTS ABILITY TO TRANSFER TO HIS STANDARD OR ELECTRIC WHEELCHAIR AT HOME. PT REPORTS HIS DAUGHTER ALSO COMES OVER TO ASSIST HIM AT HOME. PT ASKED FOR CM TO FAX RECORDS TO [facility] [place] TO ASSIST WITH HIS FOLLOW UP OUTPATIENT CARE AT [facility]. PT STATES HE WANTS TO GO HOME AND WOULD LIKE TO DISCHARGE HOME TOMORROW. PT STATES HIS SON OR DAUGHTER WILL PICK HIM UP FOR TRANSPORT HOME. IMPORTANT MESSAGE FROM MEDICARE PROVIDED AND EXPLAINED. PATIENT PLANS TO DISCHARGE HOME WITH FAMILY ASSISTANCE. FOR DISCHARGE HOME, CM TO FAX RECORDS AND DISCHARGE INFORMATION TO [facility] AT [phone]. BELKYS Elaine DCP- Discharge Planning Updated by [id number]: Julio Obregon on 01/03/19 2:[address] Patient Name: STEPHIE CHURCH Admission Status: ER Accout number: [id number] Admission Date: 01-01-2019 : 1945 Admission Diagnosis: Attending: SOLEDAD BETHEA Current LOS: 2 Anticipated DC Date: Planned Disposition: Home Primary Insurance: [employer] Discharge Planning Comments: CM MET WITH PT IN ROOM TO DISCUSS DISCHARGE PLANNING AND NEEDS. PT REPORTS LIVING AT HOME INDEPENDENTLY WITH HIS ADULT SON. [facility]. PT HAS NO OUTSIDE SERVICES ASSISTING IN THE HOME. CM DISCUSSED AVAILABILITY OF HOME HEALTH, REHAB SERVICES AND MEDICAL EQUIPMENT. PT DENIES DISCHARGE NEEDS, REPORTS HIS SON WILL PICK HIM UP FOR DISCHARGE HOME. IMPORTANT MESSAGE FROM MEDICARE PROVIDED AND EXPLAINED. PT DECLINES TRANSFER TO [facility], REPORTING IT WOULD BE A HARDSHIP TO HIS FAMILY. PT REPORTS HAVING MEDICARE AND WILL HAVE HIS NIECE PROVIDE THE CARD TO CM OR REGISTRATION TOMORROW WHEN SHE COMES TO HOSPITAL. PT PLANS TO DISCHARGE HOME WITH HIS SON. PT DENIES DISCHARGE NEEDS AT THIS TIME. CM TO FOLLOW AND ASSIST IF NEEDED. Grid Trimmer: Julio Obregon DCPIA - Discharge Planning Initial Assessment Updated by [id number]: Julio Obregon on 01/03/19 3:44 pm * Is the patient Alert and Oriented? Yes * How many steps to enter\exit or inside your home? * PCP DR. YANG AT [facility] * Pharmacy [facility] [address] * Preadmission Environment Home with Family * ADLs Independent * Equipment Walker Wheelchair * Other Equipment [employer] - MEDICAL EQUIPMENT PROVIDER * List name and contact numbers for known caregivers / representatives who currently or will assist patient after discharge: KAYCE CHURCH, SON, * Verbal permission to speak to the caregivers and representatives has been obtained from the patient. N/A * Community resources currently utilized None * Please name any agencies selected above. NONE * Additional services required to return to the preadmission environment? No * Can the patient safely return to the preadmission environment? Yes * Has this patient been hospitalized within the prior 30 days at any hospital? No External Providers External Provider: OTHER-OTHER Next Contact Date: 01/09/2019 Service Request Date: Service Type: Resolution: Reviewer: Comments: Coverage Notice Reviewer: [id number] - Julio Obregon Notice Issued Date-Time: 01/03/2019 15:35 Notice Type: IM Discharge Notice Notice Delivered To: Patient Relationship to Patient: Customer Manager Name: Delivery Method: HAND - Hand Delivered Emily Days: Prior Verbal Notification: Recipient Understood Notice: Yes Recipient Signature: Yes Med Rec Note Co-signed by Attending: Coverage Notice Comment: Reviewer: [id number] Cadence Obregon Notice Issued Date-Time: 01/08/2019 15:20 Notice Type: IM Discharge Notice Notice Delivered To: Patient Relationship to Patient: Customer Manager Name: Delivery Method: HAND - Hand Delivered Emily Days: Prior Verbal Notification: Recipient Understood Notice: Yes Recipient Signature: Yes Med Rec Note Co-signed by Attending: Coverage Notice Comment: Last DP export: 01/08/19 2:46 p Patient Name: STEPHIE CHURCH Page [id number] at 1258 All edits/amendments must be made on the electronic document DICTATION DATE: 01/09/19 1257 PHYSICAL THERAPIST: MELIA 01/09/19 1257 RPT#: [id number] DC DATE: STATUS: ADM IN [facility] [address] [place] [address] END OF REPORT
--- NOTE | 2019-01-09 13:19 | MORECARE ---
CASE MANAGEMENT DISCHARGE SUMMARY PATIENT: STEPHIE CHURCH UNIT: [id number] ADM DATE: 01/01/19 AGE: 73 : 46 SEX: M ROOM/BED: D.7315 AUTHOR: AHMETDOC PHYSICIAN: REFERRING PHYSICIAN: SOLEDAD BETHEA MD DATE OF SERVICE: 01/09/19 Discharge Plan Patient Name: STEPHIE CHURCH Facility: [facility]:[place] : 1945 Planned Disposition: Home Anticipated Discharge Date: 01/09/19 Discharge Date: Expected LOS: 8 Initial Reviewer: [email or web address] Initial Review Date: 01/03/2019 Generated: 01/09/19 2:18 pm Comments DCP- Discharge Planning Updated by [email or web address]: Julio Obregon on 01/09/19 12:[address] Patient Name: STEPHIE CHURCH Encounter No: [id number] : 1945 Primary Insurance: MEDICARE PART A ONLY Anticipated DC Date: 01-09-2019 Planned Disposition: Home DCP follow-up note: CM MET WITH PT AND HIS SON IN ROOM TO DISCUSS DISCHARGE NEEDS. PT PLANS TO RETURN HOME WITH HIS SON TODAY. PT'S SON WOULD LIKE HOME HEALTH FROM [facility] IF POSSIBLE AND REPORTS PT WAS SEEING [facility] FOR WOUND CARE TO FEET AND WILL FOLLOW UP WITH THEM FOR WOUND CARE AND DIALYSIS ARRANGEMENTS. PT'S BEDSIDE NURSE TO INSTRUCT FAMILY ON WOUND CARE PRIOR TO DISCHARGE, PT'S SON REPORTS ABILITY FOR FAMILY TO PROVIDE WOUND CARE AT HOME. PT'S SON WILL GO BY [facility] TODAY AND ASK PT'S [facility] TEAM FOR HOME HEALTH AND WOULD LIKE CM TO FAX ORDER TO [facility] TODAY. HOME HEALTH ORDER RECEIVED. CM CALLED [facility], , SPOKE TO JUNAID AND INFORMED OF REQUEST FOR HOME HEALTH; JUNAID INFORMED CM THAT RECORDS CAN BE FAXED TO THE CLINIC, DR. YANG WILL REVIEW AND IF IN AGREEMENT WITH ASSESSMENT AND NEED FOR HOME HEALTH, DR. YANG WILL ORDER FOR [facility] TO MAKE HOME HEALTH ARRANGMENT. CM FAXED REQUESTED INFORMATION TO [facility], ATTENTION DR. YANG, . Julio Obregon, CASE MANAGEMENT DCP- Discharge Planning Updated by [id number]: Julio Obregon on 01/08/19 2:[address] Patient Name: STEPHIE CHURCH Encounter No: [id number] : 1945 Primary Insurance: MEDICARE PART A ONLY Anticipated DC Date: 01-09-2019 Planned Disposition: Home DCP follow-up note: CM MET WITH PT IN ROOM TO DISCUSS DISCHARGE NEEDS AND PLANNING. CM ASKED PT IF HE HAD DECIDED TO HAVE DIALYSIS. PT STATES YES. CM EXPLAINED THAT PT HAS MEDICARE PART A ONLY AND THAT [facility] CAN PROVIDE PT'S CARE AT NO COST. PT REPORTS INABILITY TO AFFORD OTHER INSURANCE AND WILL FOLLOW UP WITH [facility] FOR HIS WOUND CARE AND HEMO DIALYSIS NEEDS. PT DENIES NEED OF HOME HEALTH SERVICES, STATES HE LIVES WITH HIS SON AND THAT H IS [facility] IS HOME TO ASSIST WITH HIS CARE. PT REPORTS ABILITY TO TRANSFER TO HIS STANDARD OR ELECTRIC WHEELCHAIR AT HOME. PT REPORTS HIS DAUGHTER ALSO COMES OVER TO ASSIST HIM AT HOME. PT ASKED FOR CM TO FAX RECORDS TO [facility] IN [place] TO ASSIST WITH HIS FOLLOW UP [facility]PATIENT CARE AT [facility]. PT STATES HE WANTS TO GO HOME AND WOULD LIKE TO DISCHARGE HOME TOMORROW. PT STATES HIS SON OR DAUGHTER WILL PICK HIM UP FOR TRANSPORT HOME. IMPORTANT MESSAGE FROM MEDICARE PROVIDED AND EXPLAINED. PATIENT PLANS TO DISCHARGE HOME WITH FAMILY ASSISTANCE. FOR DISCHARGE HOME, CM TO FAX RECORDS AND DISCHARGE INFORMATION TO [facility] AT [phone]. Julio Obregon, CASE MANAGEMENT DCP- Discharge Planning Updated by [email or web address]: Julio Obregon on 01/03/19 2:[address] Patient Name: STEPHIE CHURCH Admission Status: ER Accout number: [id number] Admission Date: 01-01-2019 : 1945 Admission Diagnosis: Attending: SOLEDAD BETHEA Current LOS: 2 Anticipated DC Date: Planned Disposition: Home Primary Insurance: [facility] [employer] Discharge Planning Comments: CM MET WITH PT IN ROOM TO DISCUSS DISCHARGE PLANNING AND NEEDS. PT REPORTS LIVING AT HOME INDEPENDENTLY WITH HIS ADULT SON. PT [facility]. PT HAS NO OUTSIDE SERVICES ASSISTING IN THE HOME. CM DISCUSSED AVAILABILITY OF HOME HEALTH, REHAB SERVICES AND MEDICAL EQUIPMENT. PT DENIES DISCHARGE NEEDS, REPORTS HIS SON WILL PICK HIM UP FOR DISCHARGE HOME. IMPORTANT MESSAGE FROM MEDICARE PROVIDED AND EXPLAINED. PT DECLINES TRANSFER TO [facility], REPORTING IT WOULD BE A HARDSHIP TO HIS FAMILY. PT REPORTS HAVING MEDICARE AND WILL HAVE HIS NIECE PROVIDE THE CARD TO CM OR REGISTRATION TOMORROW WHEN SHE COMES TO HOSPITAL. PT PLANS TO DISCHARGE HOME WITH HIS SON. PT DENIES DISCHARGE NEEDS AT THIS TIME. CM TO FOLLOW AND ASSIST IF NEEDED. Edge Trimmer Mechanic: Julio Mindi DCPIA - Discharge Planning Initial Assessment Updated by VIDAL: Julio Obregon on 01/03/19 3:44 pm * Is the patient Alert and Oriented? Yes * How many steps to enter\exit or inside your home? * PCP DR. YANG AT [facility] * [facility] [address] * Preadmission Environment Home with Family * ADLs Independent * Equipment Walker Wheelchair * Other Equipment [employer] - MED[employer] EQUIPMENT PROVIDER * List name and contact numbers for known caregivers / representatives who currently or will assist patient after discharge: KAYCE CHURCH, SON, * Verbal permission to speak to the caregivers and representatives has been obtained from the patient. N/A * Community resources currently utilized None * Please name any agencies selected above. NONE * Additional services required to return to the preadmission environment? No * Can the patient safely return to the preadmission environment? Yes * Has this patient been hospitalized within the prior 30 days at any hospital? No Coverage Notice Reviewer: [id number] Cadence Obregon Notice Issued Date-Time: 01/03/2019 15:35 Notice Type: IM Discharge Notice Notice Delivered To: Patient Relationship to Patient: Artificial Breeding Distributor Name: Delivery Method: HAND - Hand Delivered Emily Days: Prior Verbal Notification: Recipient Understood Notice: Yes Recipient Signature: Yes Med Rec Note Co-signed by Attending: Coverage Notice Comment: Reviewer: [id number] - Julio Obregon Notice Issued Date-Time: 01/08/2019 15:20 Notice Type: IM Discharge Notice Notice Delivered To: Patient Relationship to Patient: Artificial Breeding Distributor Name: Delivery Method: HAND - Hand Delivered Emily Days: Prior Verbal Notification: Recipient Understood Notice: Yes Recipient Signature: Yes Med Rec Note Co-signed by Attending: Coverage Notice Comment: Last DP export: 01/09/19 11:58 a Patient Name: STEPHIE CHURCH Page 53710 at 1319 All edits/amendments must be made on the electronic document DICTATION DATE: 01/09/19 1318 TRACK REPAIR LABORER: MELIA 01/09/19 1318 RPT#: [id number] DC DATE: STATUS: ADM IN [facility] [address] [place] [address] END OF REPORT
--- NOTE | 2019-01-09 17:05 | NUR ---
OT NOTE: PT COMPLETED BED MOB TASK WITH MOD A. PT COMPLETED EOB SITTING WITH MIN/MOD A. PT COMPLETED GROOMING TASKS WITH MIN/MOD AT EOB. 330/402 THANK YOU, CHICO LAMB
--- NOTE | 2019-01-09 17:22 | NUR ---
PIV TO BOTH WRISTS REMOVED WITH CATHETER TIP INTACT, TELEMETRY REMOVED AND GIVEN TO CRUDE UNIT OPERATOR. CALLED [facility] TO COME GET PT FOR TRANSFER HOME.
--- NOTE | 2019-01-09 17:30 | NUR ---
PT LEFT VIA AMBULANCE
== END 2019-01-09 18:21 | disposition home or self-care (01) | DRG 871 ==
LOC: D.ER 19:57 → D.M2 23:40
PROVIDERS: Family Medicine; Internal Medicine Nephrology; ADMIT Internal Medicine Nephrology; ATTEND Internal Medicine Nephrology
DX: A41.9 Sepsis, unspecified organism (principal); N17.0 Acute kidney failure with tubular necrosis; L03.116 Cellulitis of left lower limb; N18.5 Chronic kidney disease, stage 5; L97.419 Non-pressure chronic ulcer of right heel and midfoot with unspecified severity; A04.72 Enterocolitis due to Clostridium difficile, not specified as recurrent; E87.6 Hypokalemia; E11.65 Type 2 diabetes mellitus with hyperglycemia; D63.1 Anemia in chronic kidney disease; E11.22 Type 2 diabetes mellitus with diabetic chronic kidney disease; E11.621 Type 2 diabetes mellitus with foot ulcer; L97.529 Non-pressure chronic ulcer of other part of left foot with unspecified severity

== ENCOUNTER 2019-02-17 16:01 | Emergency (ER) | payer OTHER, MEDICARE ==
[~2019-02-17 16:01] MED LIST: CLARITIN 10 MG10 MG PO; COREG 3.1253.125 MG PO; COUMADIN2 MG PO; FERROUS SULFAT325 MG PO; FLAGYL500 MG PO; FLOMAX0.4 MG PO; INSULIN; LASIX80 MG PO; LEVOFLOXACIN500 MG PO; LISINOPRIL2.5 MG PO; NEURONTIN 300300 MG PO; SENNA LAXATIVE8.6 MG PO; ZOLOFT100 MG PO
[2019-02-17 16:03] VITALS: BMI 27.3
[2019-02-17 17:03] LABS: BASOPHILS 0.2 % (0-2); EOSINOPHILS 3.3 % (0-7); HEMATOCRIT 28.3 % (42.0-54.0); HEMOGLOBIN 8.9 g/dL (13.5-17.5); IMMATURE GRANULOCYTES 0.7 % (0-5); LYMPHOCYTES 16.1 % (15-50); MCH 28.5 pg (26.0-34.0); MCHC 31.4 g/dL (31.0-37.0); MCV 90.7 fL (80.0-100.0); MEAN PLATELET VOLUME 9.5 fL (7.4-10.4); MONOCYTES 7.1 % (2-11); NEUTROPHILS 72.6 % (40-80); RBC 3.12 10x6/uL (4.20-6.10); RDW 17.1 % (11.5-14.5)
[2019-02-17 17:05] LABS: PLATELET COUNT 266 10x3/uL (130-400)
[2019-02-17 17:14] LABS: APTT 67.3 SECONDS (22.8-39.4)
[2019-02-17 17:26] LABS: INR 10.03 (0.85-1.17); PROTIME 79.2 SECONDS (11.6-15.0)
[2019-02-17 17:56] LABS: ALKALINE PHOSPHATASE 75 U/L (46-116); ALT (SGPT) 7 U/L (10-68); BILIRUBIN - TOTAL 0.37 mg/dL (0.2-1.3); CALC OSMOLALITY 310 mosm/kg (275-300); CALCIUM 7.6 mg/dL (8.5-10.1); CARBON DIOXIDE 22.1 mmol/L (21.0-32.0); CHLORIDE - SERUM 105 mmol/L (98-107); CREATININE - SERUM 6.4 mg/dL (0.6-1.3); GLUCOSE 121 mg/dL (74-106); POTASSIUM - SERUM 3.5 mmol/L (3.5-5.1); PROTEIN - SERUM 5.5 g/dL (6.4-8.2); SODIUM 141 mmol/L (136-145); UREA NITROGEN 95 mg/dL (7-18); eGFR NON AFRICAN AMERICAN 9 mL/min (90-120)
[2019-02-17 18:03] LABS: CREATINE KINASE 34 UL (21-232); MAGNESIUM - SERUM 1.5 mg/dL (1.8-2.4); TROPONIN-I 0.029 ng/mL (0.000-0.060)
[2019-02-17 18:07] LABS: CKMB 8.9 U/L (0.0-3.6)
[2019-02-17 18:24] LABS: APPEARANCE HAZY (CLEAR); BILIRUBIN NEGATIVE (NEGATIVE); COLOR YELLOW (YELLOW); GLUCOSE NEGATIVE (NEGATIVE); KETONE NEGATIVE (NEGATIVE); NITRITE NEGATIVE (NEGATIVE); PROTEIN 1+ mg/dL (NEGATIVE); SPECIFIC GRAVITY 1.015 (1.005-1.020); UROBILINOGEN NORMAL (NORMAL)
[2019-02-17 18:25] LABS: BACTERIA MODERATE /hpf (NONE SEEN); EPITHELIAL CELLS 0-5 /hpf (0-5); WHITE CELLS - URINE >50 /hpf (0-5)
[2019-02-17 18:26] LABS: YEAST >1+ /hpf (NONE SEEN)
[2019-02-17 20:14] VITALS: BP 115/65
== END 2019-02-17 20:17 | disposition other institution (70) ==
LOC: D.ER 16:01
PROVIDERS: Emergency Medicine
DX: K92.2 Gastrointestinal hemorrhage, unspecified (principal); N18.9 Chronic kidney disease, unspecified; E87.8 Other disorders of electrolyte and fluid balance, not elsewhere classified; R74.8 Abnormal levels of other serum enzymes; I95.9 Hypotension, unspecified